=== PATIENT | female | born 1955 | race Caucasian/White ===

== ENCOUNTER 2024-07-05 14:04 | Emergency (ER) | payer OTHER ==
[2024-07-05 14:33] VITALS: BMI 28.1
[2024-07-05] MEDS ORDERED: MECLIZINE HCL 25 MG TABLET (FP) ONE (15:19)
[2024-07-05 15:23] LABS: INR 1.03 (0.83-1.09); PROTHROMBIN TIME (PATIENT) 11.7 SEC (9.7-13.0)
[2024-07-05] MEDS: MECLIZINE HCL 25 MG TABLET (FP) PO ONE (15:24)
[2024-07-05 15:25] LABS: ACTIVATED PTT 34.8 SECONDS (25.2-36.5)
[2024-07-05 15:28] LABS: HEMATOCRIT 43.7 % (32.4-45.2); HEMOGLOBIN 14.4 G/dL (10.7-15.3); MCH 32.3 pg (25.7-33.7); MEAN PLT VOLUME 7.7 fl (7.5-11.1); PLATELET COUNT 264.9 10^3/uL (134-434); RBC 4.46 10^6/uL (3.60-5.2); RDW 14.2 % (11.6-15.6); WHITE BLOOD COUNT 8.9 10^3/uL (4.0-10.8)
[2024-07-05 15:31] LABS: ALBUMIN 4.3 g/dl (3.4-5.0); BILIRUBIN,TOTAL 0.5 mg/dl (0.2-1); CALCIUM 9.8 mg/dl (8.5-10.1); CREATININE 0.9 mg/dl (0.6-1.3); POTASSIUM 3.8 mmol/L (3.5-5.1); TOT PROT 6.8 g/dl (6.4-8.2)
[2024-07-05 15:34] LABS: PLATELET ESTIMATE ADEQUATE
[2024-07-05 17:25] VITALS: BP 142/80; PULSE 62; RESP 18; TEMP 98.4
== END 2024-07-05 17:40 | disposition home or self-care (01) ==
LOC: FER 14:04
DX: R42 Dizziness and giddiness (principal); R11.0 Nausea; R06.02 Shortness of breath; Z20.822 Contact with and (suspected) exposure to COVID-19
CPT/HCPCS: 0241U-QW; 36415; 70450-TC; 71046-TC-FY; 80053; 81003; 81015; 84484; 85027; 85610; 85730; 87086; 93005; 99285-25